=== PATIENT | male | born 1980 | race Asian ===

== ENCOUNTER 2019-10-29 08:13 | Emergency (ER) | payer OTHER ==
--- OUTSIDE RECORDS SUMMARY | 2019-10-29 08:28 | XMS REPORT | Summary of Care ---
:1980 Author Organization [facility] Address [address] [address] Care Team Providers Name Role Phone None, Nettie Primary Care Provider Unavailable Reason for Referral Refer to Department Only (Routine) Status Reason Specialty Diagnoses / Referred By Referred To Procedures Contact Contact Pending Review PODIATRY Diagnoses Diabetes mellitus without complication (HCC) Juliette Bermudez FNP [address] [place] [address] Reason for Visit Reason Comments Cough x2 weeks Nail Problem toe nail problem Encounter Details Date Type Department Care Team Description 10/21/2019 Office Visit [place] Juliette Stephen, Diabetes mellitus without complication (HCC) (Primary Dx); Practice ROBINA rosales; [facility] [address] Acute sinusitis, recurrence not specified, unspecified location; [place] [address] [place] [address] Acute bronchitis, unspecified organism [phone] Allergies Active Allergy Reactions Severity Noted Date Comments Bee Sting Swelling 10/21/2019 documented as of this encounter (statuses as of 10/21/2019) Medications Medication Sig Dispensed Refills Start Date End Date Status amoxicillin-clavulanic Take 1 Tab by 20 Tab 0 10/21/2019 10/31/2019 Active acid (AUGMENTIN) mouth TWICE 875-125 MG Oral DAILY for 10 TabIndications: Acute days. sinusitis, recurrence not specified, unspecified location, Acute bronchitis, unspecified organism documented as of this encounter (statuses as of 10/21/2019) Active Problems No known active problemsdocumented as of this encounter (statuses as of 2018) Social History Tobacco Use Types Packs/Day Years Used Date Never Smoker Smokeless Tobacco: Never Used Alcohol Use Drinks/Week oz/Week Comments Yes Alcohol Habits Answer Date Recorded How often do you have a drink containing alcohol? Monthly or less 10/21/2019 How many drinks containing alcohol do you have on a 1 or 2 10/21/2019 typical day when you are drinking? How often do you have six or more drinks on one Not asked occasion? Sex Assigned at Date Recorded Not on file Job Start Date Occupation Industry Not on file Not on file Not on file Travel History Travel Start Travel End No recent travel history available. documented as of this encounter Last Filed Vital Signs Vital Sign Reading Time Taken Comments Blood Pressure 130/62 10/21/2019 2:00 PM EST Pulse 73 10/21/2019 2:00 PM EST Temperature 37.3 10/21/2019 2:00 PM EST C (99.2 F) Respiratory Rate - - Oxygen Saturation 95% 10/21/2019 2:00 PM EST Inhaled Oxygen Concentration - - Weight 84.4 kg (186 lb) 10/21/2019 2:00 PM EST Height 175.3 cm (5' 9") 10/21/2019 2:00 PM EST Body Mass Index 27.47 10/21/2019 2:00 PM EST documented in this encounter Patient Instructions Patient InstructionsJuliette Lovett FNP - 10/21/2019 2:00 PM ESTCan try soaking feet in warm water and distilled vinegar daily Rest Fluids Steam may help loosen congestion Mucinex thins mucus salt water gargle as needed for sore/scratchy throat Antibiotic as directed Podiatry referral done Call if symptoms fail to resolve or worsen Schedule labs Follow up with PCP documented in this encounter Progress Notes Juliette Lovett FNP - 10/21/2019 2:00 PM EST PATIENT: Lokesh Grimes : 1980 DATE OF SERVICE: 10/21/2019 CHIEF COMPLAINT: Chief Complaint Patient presents with Cough x2 weeks Nail Problem toe nail problem Subjective HISTORY OF PRESENT ILLNESS: Lokesh Grimes is a 39-y.o. male. HPI Cough x 2 weeks - using cough drops - no change. Some sick contacts Hx diabetes - was on Lantus - no meds for several years - was also on cholesterol meds. Has not had health insurance. Hx ingrown toenails - was treated in past - part removed but has grown back - painful at times. 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 No pertinent family history. Current Outpatient Medications Medication Sig amoxicillin-clavulanic acid (AUGMENTIN) 875-125 MG Oral Tab Take 1 Tab by mouth TWICE DAILY for 10 days. No current facility-administered medications for this visit. Allergies Allergen Reactions Bee Sting Swelling Social History Socioeconomic History Marital status: Spouse name: Not on file Number of children: Not on file Years of education: Not on file Highest education level: Not on file Occupational History Not on file Social Needs Financial resource strain: Not on file Food insecurity Worry: Not on file Inability: Not on file Transportation needs Medical: Not on file Non-medical: Not on file Tobacco Use Smoking status: Never Smoker Smokeless tobacco: Never Used Substance and Sexual Activity Alcohol use: Yes Frequency: Monthly or less Drinks per session: 1 or 2 Drug use: Yes Types: Marijuana Sexual activity: Yes Partners: Female control/protection: Other Comment: no protection Lifestyle Physical activity Days per week: Not on file Minutes per session: Not on file Stress: Not on file Relationships Social connections Talks on phone: Not on file Gets together: Not on file Attends protestant service: Not on file Active member of club or organization: Not on file Attends meetings of clubs or organizations: Not on file Relationship status: Not on file Intimate partner violence Fear of current or ex partner: Not on file Emotionally abused: Not on file Physically abused: Not on file Forced sexual activity: Not on file Other Topics Concern Not on file Social History Narrative Not on file Over the last 2 weeks, have you been feeling down, depressed, anxious, or hopeless?: 0 Over the past 2 weeks, have you felt little interest or pleasure in doing things ?: 0 REVIEW OF SYSTEMS: Review of Systems Constitutional: Negative for chills, fever and malaise/fatigue. HENT: Positive for congestion and ear pain. Negative for sore throat. Respiratory: Positive for cough, sputum production, shortness of breath and wheezing. Cardiovascular: Negative for chest pain and palpitations. Musculoskeletal: Positive for myalgias. Skin: Negative for rash. Neurological: Negative for dizziness, weakness and headaches. Occasional tingling in toes Objective PHYSICAL EXAM: VITALS: BP 130/62 | Pulse 73 | Temp 99.2 F (37.3 C) (Tympanic) | Ht 5' 9" (1.753 m) | Wt 186 lb (84.4 kg) | SpO2 95% | BMI 27.47 kg/m Body mass index is 27.47 kg/m. Physical Exam Vitals signs reviewed. Constitutional: General: He is not in acute distress. Appearance: Normal appearance. HENT: Head: Normocephalic and atraumatic. Right Ear: Tympanic membrane normal. Left Ear: Tympanic membrane normal. Ears: Comments: Canals red, no swelling Nose: Congestion and rhinorrhea present. Mouth/Throat: Lips: [place]. Mouth: Mucous membranes are moist. Pharynx: Uvula midline. Oropharyngeal exudate and posterior oropharyngeal erythema present. Tonsils: Tonsillar exudate present. No tonsillar abscesses. Swellin+ on the right. 2+ on the left. Comments: Tonsils 2+ Eyes: Extraocular Movements: Extraocular movements intact. Conjunctiva/sclera: Conjunctivae normal. Pupils: Pupils are equal, round, and reactive to light. Neck: Musculoskeletal: Normal range of motion. No neck rigidity. Cardiovascular: Rate and Rhythm: Normal rate and regular rhythm. Pulmonary: Effort: Pulmonary effort is normal. Breath sounds: Normal breath sounds. Musculoskeletal: Normal range of motion. Feet: Lymphadenopathy: Cervical: No cervical adenopathy. Skin: General: Skin is warm and dry. Capillary Refill: Capillary refill takes less than 2 seconds. Neurological: Mental Status: He is alert and oriented to person, place, and time. Cranial Nerves: Cranial nerves are intact. Sensory: Sensation is intact. No sensory deficit. Motor: No weakness. Gait: Gait is intact. Psychiatric: Mood and Affect: Mood normal. Behavior: Behavior normal. ASSESSMENT / IMPRESSION: ICD-9-CM ICD-10-CM 1. Diabetes mellitus without complication (HCC) 250.00 E11.9 GLYCOHEMOGLOBIN A1C COMPREHENSIVE METABOLIC PANEL LIPID PROFILE REFER TO PODIATRY 2. Ingrown toenail 703.0 L60.0 REFER TO PODIATRY 3. Acute sinusitis, recurrence not specified, unspecified location 461.9 J01.90 amoxicillin-clavulanic acid (AUGMENTIN) 875-125 MG Oral Tab 4. Acute bronchitis, unspecified organism 466.0 J20.9 amoxicillin-clavulanic acid (AUGMENTIN) 875-125 MG Oral Tab Plan Can try soaking feet in warm water and distilled vinegar daily Rest Fluids Steam may help loosen congestion Mucinex thins mucus salt water gargle as needed for sore/scratchy throat Antibiotic as directed Podiatry referral done Call if symptoms fail to resolve or worsen Schedule labs Follow up with PCP Author: ROBINA Messer 10/21/2019 14:32 documented in this encounter Plan of Treatment Date Type Specialty Care Team Description 10/27/2019 Lab Internal Medicine 11/08/2019 Office Visit [facility] Bryce Bang MD [address] [place] [address] [phone] Name Type Priority Associated Diagnoses Order Schedule GLYCOHEMOGLOBIN A1C Lab Routine Diabetes mellitus Expected: 10/21/2019 without complication (Approximate), (HCC) Expires: 10/21/2020 COMPREHENSIVE METABOLIC Lab Routine Diabetes mellitus Expected: 10/21/2019 PANEL without complication (Approximate), (HCC) Expires: 04/18/2020 LIPID PROFILE Lab Routine Diabetes mellitus Expected: 10/21/2019 without complication (Approximate), (HCC) Expires: 04/18/2020 Name Type Priority Associated Diagnoses Order Schedule REFER TO PODIATRY Referral Routine Diabetes mellitus without Expected: 10/2019, complication (HCC) Expires: 10/21/2020 [facility] Maintenance Due Date Last Done Comments DTaP/Tdap/Td Vaccines (1 - Tdap) 1993 DEPRESSION SCREENING 1994 INFLUENZA VACCINE (#1) 2019 HEPATITIS A IMMUNIZATION SERIES Aged Out No longer eligible based on patient's age to complete this topic HPV IMMUNIZATION SERIES Aged Out No longer eligible based on patient's age to complete this topic MENINGOCOCCAL VACCINE IMM Aged Out No longer eligible based on patient's age to complete this topic PNEUMOCOCCAL 0-64 YRS Aged Out No longer eligible based on patient's age to complete this topic documented as of this encounter Results Not on filedocumented in this encounter Visit Diagnoses Diagnosis Diabetes mellitus without complication (HCC) Type II or unspecified type diabetes mellitus without mention of complication, not stated as uncontrolled Ingrown toenail Ingrowing nail Acute sinusitis, recurrence not specified, unspecified location Acute bronchitis, unspecified organism documented in this encounter Insurance Payer Benefit Plan / Subscriber ID Effective Dates Phone Address Type Group [employer]CIAL AETNA xxxxxxxxxx 2019-Present [employer] documented as of this encounter
--- NOTE | 2019-10-29 08:31 | ED ---
GI/ HPI - HPI Summary HPI Summary: 39-year-old male presents with vomiting today. He states this has happened a couple times in the past couple months. He states that he has been having chills and hot flashes. He states that he has not eaten anything this morning and did not eat anything different last night. He admits to generalized abd pain. No diarrhea. with past episodes had diarrhea. States has had a cold for the past week and is currently on amoxicillin for past week. He states that his sinus congestion, sore throat, and cough having been improving. Denies any chest pressure or shortness of breath. He is diabetic but does not check his sugars. - History of Current Complaint Chief Complaint: EDFluSymptoms Time Seen by Provider: 10/29/19 08:20 Stated Complaint: VOMITING/CHILLS/ABD PAIN PER PT Pain Intensity: 7 - Allergy/Home Medications Allergies/Adverse Reactions: Allergies Allergy/AdvReac Type Severity Reaction Status Date / Time No Known Allergies Allergy Verified 10/29/19 08:16 Home Medications: Home Medications Amoxicillin PO (*) [Amoxicillin 875 MG (*)] 1 tab PO BID 10/29/19 [History Confirmed 10/29/19] Silver Sulfadiazine 1%* [SILVadine 1%*] 1 applic TOPICAL DAILY 10/29/19 [ History Confirmed 10/29/19] PMH/Surg Hx/FS Hx/Imm Hx Endocrine/Hematology History: Reports: Hx Diabetes Denies: Hx Anticoagulant Therapy Cardiovascular History: Denies: Hx Myocardial Infarction Infectious Disease History: No Infectious Disease History: Denies: Traveled Outside the [place] in Last 30 Days - Family History Known Family History: Positive: Non-Contributory - Social History Alcohol Use: Rare Substance Use Type: Reports: Marijuana Smoking Status (MU): Never Smoked Tobacco Review of Systems Positive: Chills. Negative: Fever Negative: Chest Pain Negative: Shortness Of Breath Positive: Abdominal Pain, Vomiting, Nausea. Negative: Diarrhea All Other Systems Reviewed And Are Negative: Yes Physical Exam Triage Information Reviewed: Yes Vital Signs On Initial Exam: Initial Vitals Temp Pulse Resp BP Pulse Ox 98.8 F 82 16 126/78 97 10/29/19 08:16 10/29/19 08:16 10/29/19 08:16 10/29/19 08:16 10/29/19 08:16 Vital Signs Reviewed: Yes Appearance: Positive: Well-Appearing Skin: Positive: Warm, Dry Head/Face: Positive: Normal Head/Face Inspection Eyes: Positive: Normal, EOMI, KATHIE, Conjunctiva Clear ENT: Positive: Pharynx normal, TMs normal Respiratory/Lung Sounds: Positive: Clear to Auscultation, Breath Sounds Present Cardiovascular: Positive: Normal, RRR Abdomen Description: Positive: Soft, Other: - diffuse abd tenderness Bowel Sounds: Positive: Present Musculoskeletal: Positive: Normal Neurological: Positive: Normal Psychiatric: Positive: Normal Procedures - Sedation Patient Received Moderate/Deep Sedation with Procedure: No Diagnostics - Vital Signs Vital Signs Temp Pulse Resp BP Pulse Ox 10/29/19 08:16 98.8 F 82 16 126/78 97 - Laboratory Result Diagrams: 10/29/19 08:49 10/29/19 08:49 Lab Statement: Any lab studies that have been ordered have been reviewed, and results considered in the medical decision making process. Re-Evaluation - Re-Evaluation First Eval Re-Evaluation Time: 09:50 Change: Improved Comment: feeling better, abd pain improved, mild diffuse GIGU Course/Dx - Course Course Of Treatment: 39-year-old male presents with vomiting today. He states this has happened a couple times in the past couple months. He states that he has been having chills and hot flashes. He states that he has not eaten anything this morning and did not eat anything different last night. He admits to generalized abd pain. No diarrhea. with past episodes had diarrhea. States has had a cold for the past week and is currently on amoxicillin for past week. He states that his sinus congestion, sore throat, and cough having been improving. Denies any chest pressure or shortness of breath. He is diabetic but does not check his sugars. on exam lungs CTA. abd diffuse abd tenderness. wbc 12.4. glucose is 281. crp normal. flu neg. will give nausea meds. feeling better after nausea meds. will discharge with such. discussed likely viral syndrome. pateint is going to be following up with primary to restart insulin. patient understand and agrees with plan. - Diagnoses Differential Diagnoses - Male: Gastroenteritis (Bacterial), Gastroenteritis ( Viral), Other - influenza Provider Diagnoses: Vomiting Discharge ED - Sign-Out/Discharge Documenting (check all that apply): Patient Departure - Discharge Plan Condition: Good Disposition: HOME Prescriptions: Ondansetron ODT TAB* [Zofran 4 MG Odt TAB*] 4 mg PO Q6H PRN #20 tab.odt PRN Reason: Nausea Patient Education Materials: Acute Nausea and Vomiting (ED) Referrals: Bryce Bang MD [Primary Care Provider] - Additional Instructions: Can take Zofran every 6 hours as needed for nausea Drink small amounts of fluid as tolerated When able to eat follow BRAT diet: Bananas, rice, applesauce, toast Take ibuprofen or Tylenol for pain as needed every 6 hours Follow up with primary within 5 days Return to ED if develop any new or worsening symptoms - Billing Disposition and Condition Condition: GOOD Disposition: Home - Attestation Statements Provider Attestation: I was available for consult. This patient was seen by the BRITTNEY. The patient was not presented to, seen by, or examined by me. Mohan Hughes MD
[2019-10-29] MEDS: Ketorolac INJ* 30 MG/ML 1 ML VIAL IV PUSH ONE (08:38)
[2019-10-29] MEDS: NS 0.9% 1000 ML** 1,000 ML IV ONE ×2 (08:38→09:39)
[2019-10-29] MEDS: Ondansetron INJ* 2 MG/ML VIAL IV ONE (08:38)
[2019-10-29 08:58] LABS: ABS Basophils 0.1 10^3/ul (0-0.2); ABS Monocytes 0.8 10^3/ul (0-0.8); ABS Neutrophils 10.5 10^3/ul (1.5-7.7); Eosinophil % 0.2 %; Hematocrit 46 % (42-52); Hemoglobin 15.3 g/dL (14.0-18.0); Lymphocyte % 7.9 %; Mean Corpuscular HGB Conc 34 g/dL (31-36); Mean Corpuscular Hemoglobin 30 pg (27-31); Mean Corpuscular Volume 89 fL (80-94); Mean Platelet Volume 9.1 fL (7.4-10.4); Platelet Count 194 10^3/uL (150-450); Red Blood Count 5.14 10^6 /uL (4.18-5.48); Red Cell Distribution Width 13 % (10-15); White Blood Count 12.4 10^3/uL (3.5-10.8)
[2019-10-29 09:14] LABS: ALT 22 U/L (7-52); AST 13 U/L (13-39); Albumin 4.3 g/dL (3.2-5.2); Albumin/Globulin Ratio 1.9 (1-3); Alkaline Phosphatase 67 U/L (34-104); Anion Gap 7 mmol/L (2-11); BUN/Creatinine Ratio 23.9 (8-20); Blood Urea Nitrogen 17 mg/dL (6-24); C Reactive Protein < 1.00 mg/L (<8.01); CO2 Carbon Dioxide 24 mmol/L (22-32); Calcium 9.3 mg/dL (8.6-10.3); Chloride 103 mmol/L (101-111); EGFR African American 151.1 (>60); EGFR Non-African American 124.8 (>60); Globulin 2.3 g/dL (2-4); Glucose 295 mg/dL (70-100); Magnesium 1.9 mg/dL (1.9-2.7); Potassium 4.3 mmol/L (3.5-5.0); Sodium 134 mmol/L (135-145); Total Protein 6.6 g/dL (6.4-8.9)
[2019-10-29 09:37] LABS: Influenza A Molecular NEGATIVE (Negative); Influenza B Molecular NEGATIVE (Negative)
[2019-10-29 12:09] VITALS: BP 113/75
== END 2019-10-29 10:27 | disposition home or self-care (01) ==
LOC: ED 08:13
DX: R11.10 Vomiting, unspecified (principal); E11.9 Type 2 diabetes mellitus without complications
CPT/HCPCS: 36415; 80053; 82803; 83605; 83690; 83735; 85025; 86140; 86308; 96361; 96374; 96375; 99283; J1885; J2405

== ENCOUNTER 2019-10-29 18:38 | Inpatient (IN) | payer OTHER ==
[2019-10-29] MEDS ORDERED: Ondansetron INJ* 2 MG/ML VIAL IV ONE ×2 (19:09→22:11)
[2019-10-29] MEDS ORDERED: NS 0.9% 1000 ML** 1,000 ML IV ONE ×2 (19:09→20:50)
[2019-10-29] MEDS ORDERED: Morphine 4 MG/ML VIAL (1 ml) 4 MG/ML VIAL IV ONE ×2 (19:19→22:01)
--- NOTE | 2019-10-29 19:22 | ED ---
Abdominal Pain/Male - HPI Summary HPI Summary: This patient is a 39 year old male presenting to [facility] with a chief complaint of abdominal pain, nausea, and vomiting. He states it started this morning. He denies hematuria. He states the pain is diffuse. He states he last tried to eat 3 hours ago but could not keep it down, last food kept down was 6 hours ago. The patient has a Hx of of diabetes. He rates his pain 9/10 in severity. - History of Current Complaint Chief Complaint: EDNauseaVomitDiarrh Stated Complaint: VOMITING AND ABD PAIN Time Seen by Provider: 10/29/19 19:01 Hx Obtained From: Patient Onset/Duration: Lasting Hours Pain Intensity: 9 Pain Scale Used: 0-10 Numeric Location: Diffuse - Allergies/Home Medications Allergies/Adverse Reactions: Allergies Allergy/AdvReac Type Severity Reaction Status Date / Time No Known Allergies Allergy Verified 10/29/19 18:42 PMH/Surg Hx/FS Hx/Imm Hx Endocrine/Hematology History: Reports: Hx Diabetes Denies: Hx Anticoagulant Therapy Cardiovascular History: Denies: Hx Myocardial Infarction Infectious Disease History: No Infectious Disease History: Denies: Traveled Outside the [place] in Last 30 Days - Family History Known Family History: Negative: Hypertension - Social History Alcohol Use: Rare Substance Use Type: Reports: Marijuana Smoking Status (MU): Never Smoked Tobacco Review of Systems Positive: Abdominal Pain, Vomiting, Nausea Negative: hematuria All Other Systems Reviewed And Are Negative: Yes Physical Exam - Summary Physical Exam Summary: Constitutional: Well-developed, Well-nourished, Alert. (+) Distressed Skin: Warm, Dry HENT: Normocephalic; Atraumatic Eyes: Conjunctiva normal Neck: Musculoskeletal ROM normal neck. (-) JVD, (-) Stridor, (-) Tracheal deviation Cardio: Rhythm regular, rate normal, Heart sounds normal; Intact distal pulses; The pedal pulses are 2+ and symmetric. Radial pulses are 2+ and symmetric. (-) Murmur Pulmonary/Chest wall: Effort normal. (-) Respiratory distress, (-) Wheezes, (-) Rales Abd: Soft, Generalized tenderness, (-) Distension, (-) Guarding, (-) Rebound, normal bowel sounds. Musculoskeletal: (-) Edema Lymph: (-) Cervical adenopathy Neuro: Alert, Oriented x3 Psych: Mood and affect Normal Triage Information Reviewed: Yes Vital Signs On Initial Exam: Initial Vitals Temp Pulse Resp BP Pulse Ox 96.7 F 82 22 171/117 100 10/29/19 18:38 10/29/19 18:38 10/29/19 18:38 10/29/19 18:38 10/29/19 18:38 Vital Signs Reviewed: Yes Procedures - Sedation Patient Received Moderate/Deep Sedation with Procedure: No Diagnostics - Vital Signs Vital Signs Temp Pulse Resp BP Pulse Ox 10/29/19 18:38 96.7 F 82 22 171/117 100 - Laboratory Result Diagrams: 10/30/19 07:38 10/30/19 07:38 Lab Statement: Any lab studies that have been ordered have been reviewed, and results considered in the medical decision making process. Re-Evaluation - Re-Evaluation First Eval Re-Evaluation Time: 22:50 Change: Worse Comment: Patient vomited again, received Zofran. His pain increased, was given morphine. CT shows colitis. Will discuss with hospitalist about admission. Abdominal Pain Male Course/Dx - Course Course Of Treatment: This patient is a 39 year old male presenting to [facility] with a chief complaint of abdominal pain, nausea, and vomiting. Labs reveal WBC 13.6 H, Absolute Neuts 10.9 H, Absolute Monos 0.9 H, CO2 17 L, Anion Gap 15 H, Glucose 273 H, Lactic Acid 3.9 H, CRP 2.03 H. Patient will be signed out to Dr. Graham pending CT abd/pel impression. - Diagnoses Provider Diagnoses: Colitis, Vomiting Discharge ED - Sign-Out/Discharge Documenting (check all that apply): Sign-Out Patient Signing out patient TO: Teena Graham - At shift change [address] Abd/Pel - Discharge Plan Condition: Stable Disposition: ADMITTED TO [facility] - Billing Disposition and Condition Condition: STABLE Disposition: Admitted to [facility] - Attestation Statements Document Initiated by Scribe: Yes Documenting Scribe: Luis F Martins Provider For Whom Prashanthe is Documenting (Include Credential): Refugio Hutton DO Scribe Attestation: Luis F Valderrama scribed for Refugio Hutton DO on 10/30/19 at 1026. Scribe Documentation Reviewed: Yes Provider Attestation: The documentation as recorded by the scribe, Luis F Martins accurately reflects the service I personally performed and the decisions made by me, Refugio Hutton, DO Status of Scribe Document: Viewed
[2019-10-29 19:52] LABS: ABS Basophils 0.1 10^3/ul (0-0.2); ABS Lymphocytes 1.8 10^3/ul (1.0-4.8); ABS Monocytes 0.9 10^3/ul (0-0.8); ABS Neutrophils 10.9 10^3/ul (1.5-7.7); Eosinophil % 0.2 %; Hematocrit 45 % (42-52); Hemoglobin 15.5 g/dL (14.0-18.0); Lymphocyte % 12.9 %; Mean Corpuscular HGB Conc 35 g/dL (31-36); Mean Corpuscular Hemoglobin 30 pg (27-31); Mean Corpuscular Volume 87 fL (80-94); Mean Platelet Volume 9.2 fL (7.4-10.4); Platelet Count 218 10^3/uL (150-450); Red Blood Count 5.15 10^6 /uL (4.18-5.48); Red Cell Distribution Width 13 % (10-15); White Blood Count 13.6 10^3/uL (3.5-10.8)
[2019-10-29] MEDS ORDERED: Ketorolac INJ* 30 MG/ML 1 ML VIAL IV PUSH ONE (19:52)
[2019-10-29 20:26] LABS: Albumin 4.6 g/dL (3.2-5.2); Albumin/Globulin Ratio 1.9 (1-3); BUN/Creatinine Ratio 19.2 (8-20); Calcium 9.3 mg/dL (8.6-10.3); EGFR African American 135.5 (>60); Globulin 2.4 g/dL (2-4); Potassium 3.8 mmol/L (3.5-5.0); Total Bilirubin 0.7 mg/dL (0.2-1.0)
[2019-10-29] MEDS ORDERED: Iodixanol* (CONTRAST) 320 MG/ML 100 ML SDV IV ONE (20:32)
[2019-10-29] MEDS ORDERED: Piperacillin/Tazobac ADVAN(*) 3.375 GM in NS 0.9% 100 ML* 100 ML IVPB ONE (20:51)
[2019-10-29 21:13] LABS: CRP High Sensitivity 2.03 mg/L (<2.00)
[2019-10-29 22:16] LABS: Urine Appearance Clear; Urine Bilirubin Negative (Negative); Urine Blood Negative (Negative); Urine Color Yellow; Urine Glucose 3+(>=500 mg/dL) (Negative); Urine Ketones 2+ (Negative); Urine Nitrite Negative (Negative); Urine Protein Negative (Negative); Urine Specific Gravity 1.022 (1.010-1.030); Urine Urobilinogen Negative (Negative)
[2019-10-29 22:17] LABS: Erythrocyte Sed Rate 5 mm/Hr (0-14)
--- NOTE | 2019-10-29 22:38 | ED ---
Progress - Progress Note Progress Note: Patient is a sign out from Dr. Hutton to Dr. Graham at change of shifts at 2200 on 10/29/19, pending CT ABD/PEL and disposition. - Results/Orders Results/Orders: IMPRESSION: Transverse colon wall thickening consistent with colitis, likely infectious or inflammatory. No bowel obstruction. Re-Evaluation - Re-Evaluation First Eval Re-Evaluation Time: 22:50 Change: Worse Comment: Patient vomited again, received Zofran. His pain increased, was given morphine. CT shows colitis. Will discuss with hospitalist about admission. Course/Dx - Course Course Of Treatment: This patient is a 39 year old male presenting to [facility] with a chief complaint of abdominal pain, nausea, and vomiting. Labs reveal WBC 13.6 H, Absolute Neuts 10.9 H, Absolute Monos 0.9 H, CO2 17 L, Anion Gap 15 H, Glucose 273 H, Lactic Acid 3.9 H, CRP 2.03 H. Patient will be signed out to Dr. Graham pending CT abd/pel impression. During ED course, patient was given Ciprofloxacin, iodixanol, ketorolac, metronidazole, morphine, fluids, ondansetron, and piperacillin. - Diagnoses Provider Diagnoses: Colitis, Vomiting - Provider Notifications Discussed Care Of Patient With: Precious King - Hospitalist Time Discussed With Above Provider: 00:46 Instructed by Provider To: Admit As Inpatient - Dr. King accepts patient for admission. Admit/Transition Orders Completed By ED Provider: Yes Discharge ED - Sign-Out/Discharge Documenting (check all that apply): Patient Departure - admit, Sign-Out Patient Signing out patient TO: Teena Graham Receiving patient FROM: Jad Hutton - Patient is a sign out from Dr. Hutton to Dr. Graham at change of shifts at 2200 on 10/29/19 - Discharge Plan Condition: Stable Disposition: ADMITTED TO [facility] - Billing Disposition and Condition Condition: STABLE Disposition: Admitted to [facility] - Attestation Statements Document Initiated by Scribe: Yes Documenting Scribe: Scott Harp Provider For Whom Scribe is Documenting (Include Credential): Teena Graham MD Scribe Attestation: Scott Valderrama, scribed for Teena Graham MD on 11/02/19 at 1959. Scribe Documentation Reviewed: Yes Provider Attestation: The documentation as recorded by the scribe, Scott Harp accurately reflects the service I personally performed and the decisions made by me, Teena Graham MD Status of Scribe Document: Viewed
[2019-10-29] MEDS ORDERED: Ciprofloxacin 400MG IVPREMIX(* 400 MG/200 ML BAG IVPB ONE (23:18)
[2019-10-29] MEDS ORDERED: metroNIDAZOLE IV 500 MG/100ML* 500 MG/100 ML BAG IVPB ONE (23:19)
[2019-10-30] MEDS ORDERED: NS 0.9% 1000 ML** 1,000 ML IV SCH (02:00)
[2019-10-30] MEDS: Heparin VIAL(*) 5000 UNITS/ML VIAL (FIVE THOUSAND) SUBCUT SCH ×3 (06:22→23:25)
--- NOTE | 2019-10-30 07:20 | ADMNOTE ---
Subjective Interval History: this is H/P 39 yo male with history of DM 1.5 presenting with severe abdominal pain with nausea/vomiting and diarrhea. He has been having these symptoms intermittently for the past 4 weeks. He said this is his 5th episode and he came to the ER because this time, pain is very severe, he has not been able to keep anything down and he has been having incessant diarrhea. 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 He lives with his family, no one else is sick. He has hx of DM1.5 which hasnt been getting treated because insurance problems. He went to the ED last week for URI and was prescribed antibiotics. In the ED, he got a CT abdomen which showed transverse colon wall thickening consistent with colitis. Vitals are stable, no fever. Though he has been having subjective fevers. Initial lab values showed an elevated white count. Family History: Unchanged from Admission Social History: Unchanged from Admission Past Medical History: Unchanged from Admission Review of Systems - Measurements Intake and Output: Intake and Output Last 24 Hours 10/28/19 10/29/19 10/30/19 10/31/19 06:59 06:59 06:59 06:59 Intake Total 1000 Balance 1000 Weight 186 lb 1.6 oz Intake: IV Fluids 1000 - Review of Systems Constitutional Symptoms: Positive: Fever Negative: Weight Gain, Weight Loss, Weakness, Fatigue, Night Sweats, Unexplained Falls, Other Dermatology: Negative: Normal, Rash, Skin Lesions, Cancer, Skin Lumps, Other HEENT: Negative: Normal, Change in Hearing, Vertigo, Dental Problems, Tinnitus, Sinus Problem, Other Eyes: Negative: Normal, Change in Vision, Double Vision, Eye Pain, Glaucoma, Cataract, Contacts or Glasses, Other Thyroid: Negative: Normal, Goiter, Thyroid Nodule, Cold Intolerance, Heat Intolerance , Sweatiness, Tremor, Frequent Defecation, Constipation, Palpitations, Primary Hypothyroidism, Primary Hyperthyroidism, Weight Loss, Weight Gain, Change in Skin/Hair, Change in Menstruation, Radiation Exposure, Other Pulmonary: Negative: Normal, Cough, Sputum, Hemoptysis, Wheezing, Respiratory Distress, Shortness of Breath, COPD, Asthma, Exercise Intolerance, Home Oxygen, Other Cardiology: Negative: Normal, Chest Pain, Shortness of Breath, Palpitations, Swelling of Ankles, Peripheral Vascular Dis, Edema, Faintness, Syncope, Claudication, Proximal NocturnalDyspnea, Orthopnoea, Other Gastroenterology: Positive: Abdominal Pain, Nausea, Vomiting Negative: Normal, Anorexia, Indigestion, Difficulty Swallowing, Heartburn, Constipation, Diarrhea, Blood in Stools, Change in Bowel Habits, Haematemesis, Melena, Other Genital - Urinary: Negative: Normal, Dysuria, Hematuria, Polyuria, Nocturia, Other Genitourinary - Male: Negative: Prostatism, Erectile Dysfunction, Family Hx of Prostate Cancer, Other Musculoskeletal: Negative: Joint Pain, Joint Stiffness, Arthritis, Osteoporosis, Low Back Pain , Sciatica, Joint Deformities, Kyphoscoliosis, Other Endocrinology: Negative: Normal, Thyroid Problems, Adrenal Problems, Gonadal Problems, Family Hx Endocrine Disorders, Obesity, Diabetes Mellitus, Hyperglycemia, Hx Hypoglycemia, Diabetic Foot Ulcers, Calluses, Hirsutism, Menstrual Abnormalities , Polydipsia, Polyuria, Gonadal Problems, Gynecomastia, Pituitary disease, Other Hematologic/Lymphatic: Negative: Anemia, Easy Bruising, Hx Leukemia, Hx Lymphoma, Use of Anticoagulant, Use of Antiplatelet Drugs, Other Neurology: Negative: Normal, Headache, Migraines, Change in Vision, Diplopia, Dizziness , Change in Balancing, Change in Coordination, Change in Memory, Change in Speech, Change in Sphincter Function, Change in Walking, Numbness\Paresthesiae, Unexplained Weakness, Hx of Stroke\TIA, Hx of Seizures, Other Psychiatry: Negative: Normal, Depression, Anxiety, Depressed Mood, Anhedonia, Sexual Dysfunction, Weight Change, Guilt Feelings, Tearfulness, Unusual Fatigue, Unusual Anxiety, Suicidal Ideation, Hypomania, Eating Disorders, Other Allergic/Immunologic: Negative: Hx Anaphylaxis, Hx Angioedema, Hx Environmental, Hx Seasonal, Asthma, Hx HIV, Immunocompromise, Swollen Glands LymphNodes, Other Objective Active Medications: Heparin Sodium (Porcine) (Heparin Vial(*)) 5,000 units SUBCUT Q8HR [facility] Last Admin: 10/30/19 06:22 Dose: 5,000 units Sodium Chloride (Ns 0.9% 1000 Ml) 1,000 mls @ 100 mls/hr IV PER RATE [facility] Last Admin: 10/30/19 04:28 Dose: 100 mls/hr Influenza Virus Vaccine (Fluarix Quad 3561-8354 Syr) 0.5 ml IM .ONCE ONE Stop: 10/30/19 09:01 Morphine Sulfate (Morphine Inj (Syringe))*) 2 mg IV Q4H PRN PRN Reason: PAIN - MILD Vital Signs - 8 hr 10/29/19 10/29/19 10/30/19 23:28 23:58 00:00 Temperature Pulse Rate 83 81 79 Respiratory Rate Blood Pressure 118/73 115/74 (mmHg) O2 Sat by Pulse 98 98 98 Oximetry 10/30/19 10/30/19 10/30/19 00:02 00:28 00:58 Temperature Pulse Rate 80 71 73 Respiratory Rate Blood Pressure 117/73 124/75 (mmHg) O2 Sat by Pulse 98 97 97 Oximetry 10/30/19 10/30/19 10/30/19 01:00 02:00 03:00 Temperature 99.5 F Pulse Rate 77 83 78 Respiratory 16 Rate Blood Pressure 117/80 (mmHg) O2 Sat by Pulse 98 96 97 Oximetry 10/30/19 10/30/19 10/30/19 03:28 03:44 05:11 Temperature 99.5 F 98.6 F Pulse Rate 82 92 77 Respiratory 16 16 Rate Blood Pressure 123/78 117/80 115/68 (mmHg) O2 Sat by Pulse 96 99 98 Oximetry Oxygen Devices in Use Now: None Eyes: No Scleral Icterus, PERRLA Ears/Nose/Mouth/Throat: Clear Oropharnyx, Mucous Membranes Moist Neck: NL Appearance and Movements; NL JVP, Trachea Midline Respiratory: Symmetrical Chest Expansion and Respiratory Effort, Clear to Auscultation, Clear to Percussion Cardiovascular: NL Sounds; No Murmurs; No JVD, No Edema Abdominal: No Hepatosplenomegaly, - - epigastric tenderness Lymphatic: No Cervical Adenopathy Skin: No Rash or Ulcers, No Nodules or Sclerosis Neurological: Alert and Oriented x 3, - Result Diagrams: 10/29/19 19:39 10/29/19 19:39 Assess/Plan/Problems-Billing Assessment: - Patient Problems (1) Colitis Current Visit: Yes Status: Acute Code(s): K52.9 - NONINFECTIVE GASTROENTERITIS AND COLITIS, UNSPECIFIED SNOMED Code(s): 62356678 Comment: Most likely infectious, stool studies pending, CDiff pending flagyl and cipro never had anything like it before prior to 4 months ago. (2) Diabetes mellitus type 1.5 Current Visit: Yes Status: Acute Code(s): E13.9 - OTHER SPECIFIED DIABETES MELLITUS WITHOUT COMPLICATIONS SNOMED Code(s): 003522840 Comment: A1C pending diabetic diet POC Q6H (3) Full code status Current Visit: Yes Status: Acute Code(s): Z78.9 - OTHER SPECIFIED HEALTH STATUS SNOMED Code(s): 926862511 (4) DVT prophylaxis Current Visit: Yes Status: Acute Code(s): Z29.9 - ENCOUNTER FOR PROPHYLACTIC MEASURES, UNSPECIFIED SNOMED Code(s): 808558400 Comment: heparin sc
[2019-10-30 07:53] LABS: ABS Basophils 0.1 10^3/ul (0-0.2); ABS Lymphocytes 1.7 10^3/ul (1.0-4.8); ABS Neutrophils 9.6 10^3/ul (1.5-7.7); Eosinophil % 0.2 %; Hematocrit 43 % (42-52); Hemoglobin 14.9 g/dL (14.0-18.0); Lymphocyte % 13.9 %; Mean Corpuscular HGB Conc 34 g/dL (31-36); Mean Corpuscular Hemoglobin 30 pg (27-31); Mean Corpuscular Volume 88 fL (80-94); Mean Platelet Volume 9.2 fL (7.4-10.4); Platelet Count 197 10^3/uL (150-450); Red Blood Count 4.96 10^6 /uL (4.18-5.48); Red Cell Distribution Width 13 % (10-15); White Blood Count 12.4 10^3/uL (3.5-10.8)
[2019-10-30 08:08] LABS: BUN/Creatinine Ratio 17.8 (8-20); Calcium 8.7 mg/dL (8.6-10.3); EGFR African American 146.3 (>60); EGFR Non-African American 120.9 (>60); Potassium 3.6 mmol/L (3.5-5.0)
[2019-10-30] MEDS: metroNIDAZOLE IV 500 MG/100ML* 500 MG/100 ML BAG IVPB SCH ×3 (08:16→23:25)
[2019-10-30] MEDS: Morphine INJ* 2 MG/ML 1 ML SYRINGE (TWO MG - NEW SYRINGE VERSION) IV PRN ×4 (08:27→23:34)
--- NOTE | 2019-10-30 08:42 | PN ---
Subjective Date of Service: 10/30/19 Interval History: Mr. Grimes reports that he is feeling better today overall. He is tolerating a clear liquid diet with only mild abdominal discomfort, no nausea or vomiting. He has had one liquid bowel movement today, blood noted in stool. Family History: Unchanged from Admission Social History: Unchanged from Admission Past Medical History: Unchanged from Admission Objective Active Medications: Heparin Sodium (Porcine) (Heparin Vial(*)) 5,000 units SUBCUT Q8HR [facility] Sodium Chloride (Ns 0.9% 1000 Ml) 1,000 mls @ 100 mls/hr IV PER RATE [facility] Ciprofloxacin/Dextrose (Cipro 400 Mg Ivpremix(*)) 400 mg in 200 mls @ 200 mls/ hr IVPB Q24H [facility]; Protocol Metronidazole/Sodium Chloride (Flagyl 500 Mg Ivpb*) 500 mg in 100 mls @ 100 mls /hr IVPB Q8H [facility] Influenza Virus Vaccine (Fluarix Quad 8538-9030 Syr) 0.5 ml IM .ONCE ONE Morphine Sulfate (Morphine Inj (Syringe))*) 2 mg IV Q4H PRN Vital Signs: Temp Pulse Resp BP Pulse Ox 97.9 F 70 18 117/69 100 10/30/19 07:23 10/30/19 07:23 10/30/19 08:27 10/30/19 07:23 10/30/19 07:23 Oxygen Devices in Use Now: None Appearance: Male lying in bed in NAD Eyes: No Scleral Icterus Ears/Nose/Mouth/Throat: Mucous Membranes Moist Neck: Trachea Midline Respiratory: Symmetrical Chest Expansion and Respiratory Effort, Clear to Auscultation Cardiovascular: NL Sounds; No Murmurs; No JVD, No Edema Abdominal: - - Soft, mild tenderness midline, no rebound, no guarding, BS + Extremities: No Edema Skin: No Rash or Ulcers Neurological: Alert and Oriented x 3, NL Muscle Strength and Tone Nutrition: Taking PO's Result Diagrams: 10/30/19 07:38 10/30/19 07:38 Assess/Plan/Problems-Billing Assessment: Mr. Grimes is a 39 yo M with DM who was admitted on 10/30/19 with n/v/d and suspected infectious colitis. - Patient Problems (1) Colitis Comment: - Tolerating clear liquids today - Most likely infectious, stool studies pending, CDiff negative - Continue flagyl and cipro (2) Nausea and vomiting Comment: - Has had intermittent nausea and vomiting for at least one month, not entirely explained by current finding of colitis - Given DM, recommend outpatient gastric emptying study - Does use marijuana but reports that it helps nausea (3) Diabetes mellitus type 1.5 Comment: - HgbA1c 10.4 - Has had DM for ~ 7 years, not treated as he did not have insurance. Recently obtained insurance, started on lantus but co-pay is $200. Plan to start Novolin 70/30 BID at 5 units. Recommend follow up with Dr Peñaloza outpatient. - Blood glucose qAC with lispro SSI coverage (4) DVT prophylaxis Comment: - heparin sc (5) Full code status Comment: Status and Disposition: Inpatient. Anticipate discharge to home when medically stable.
[2019-10-30] MEDS ORDERED: Influenza VAC *QUAD* 2019-20* 0.5 ML SYRINGE IM ONE (09:00)
[2019-10-30] MEDS: Ciprofloxacin 400MG IVPREMIX(* 400 MG/200 ML BAG IVPB SCH (10:14)
[2019-10-30] MEDS ORDERED: Dextrose 50% VIAL 50 ml IV PUSH PRN (14:02)
[2019-10-30] MEDS: Silver Sulfadiazine 1%* 20 GM TOPICAL SCH (15:54)
[2019-10-30] MEDS: Insulin LISPRO* 1 UNITS UNIT SUBCUT SCH (17:01)
[2019-10-30] MEDS: Insulin ISOPH/REG 70/30 (*) 1 UNITS UNIT SUBCUT SCH (17:02)
[2019-10-31] MEDS: Heparin VIAL(*) 5000 UNITS/ML VIAL (FIVE THOUSAND) SUBCUT SCH ×2 (05:43→12:50)
--- NOTE | 2019-10-31 07:47 | PN ---
Subjective Date of Service: 10/31/19 Interval History: Mr. Grimes reports some lower quadrant abdominal pain this morning, pain less diffuse than yesterday. Tolerating soft diet well without nausea or vomiting. He has had liquid BMs with scant blood since yesterday. Family History: Unchanged from Admission Social History: Unchanged from Admission Past Medical History: Unchanged from Admission Objective Active Medications: Dextrose (Dextrose 50% Vial 50 Ml*) 25 ml IV PUSH .FOR FS < 60 - SS PRN Heparin Sodium (Porcine) (Heparin Vial(*)) 5,000 units SUBCUT Q8HR [facility] Sodium Chloride (Ns 0.9% 1000 Ml) 1,000 mls @ 100 mls/hr IV PER RATE [facility] Ciprofloxacin/Dextrose (Cipro 400 Mg Ivpremix(*)) 400 mg in 200 mls @ 200 mls/ hr IVPB Q24H [facility]; Protocol Metronidazole/Sodium Chloride (Flagyl 500 Mg Ivpb*) 500 mg in 100 mls @ 100 mls /hr IVPB Q8H [facility] Insulin Human Isoph/Insulin Regular (Humulin 70/30 (*)) 5 units SUBCUT 0800, 1700 [facility] Insulin Human Lispro (Humalog*) 0 units SUBCUT AC [facility]; Protocol Morphine Sulfate (Morphine Inj (Syringe))*) 2 mg IV Q4H PRN Silver Sulfadiazine (Silvadine 1%*) 1 applic TOPICAL DAILY [facility] Vital Signs: Temp Pulse Resp BP Pulse Ox 98.2 F 64 18 122/89 100 10/31/19 03:35 10/31/19 03:35 10/31/19 03:35 10/31/19 03:35 10/31/19 03:35 Oxygen Devices in Use Now: None Appearance: Male lying in bed in NAD Eyes: No Scleral Icterus Ears/Nose/Mouth/Throat: Mucous Membranes Moist Neck: Trachea Midline Respiratory: Symmetrical Chest Expansion and Respiratory Effort, Clear to Auscultation Cardiovascular: NL Sounds; No Murmurs; No JVD, No Edema Abdominal: - - Soft, mild tenderness across the lower abdomen, no rebound or guarding Extremities: No Edema Skin: No Rash or Ulcers Neurological: Alert and Oriented x 3, NL Muscle Strength and Tone Result Diagrams: 10/30/19 07:38 10/30/19 07:38 Microbiology and Other Data: . Assess/Plan/Problems-Billing Assessment: Mr. Grimes is a 39 yo M with DM who was admitted on 10/30/19 with n/v/d and suspected infectious colitis. - Patient Problems (1) Colitis Comment: - Tolerating soft diet - Most likely infectious, stool studies pending, CDiff negative - Continue flagyl and cipro for 5 day course (2) Nausea and vomiting Comment: - Has had intermittent nausea and vomiting for at least one month, not entirely explained by current finding of colitis - Given DM, recommend outpatient gastric emptying study - Does use marijuana but reports that it helps nausea (3) Diabetes mellitus type 1.5 Comment: - BG elevated, increase Novolin 70/30 to 8 units BID - HgbA1c 10.4 - Has had DM for ~ 7 years, not treated as he did not have insurance. Recently obtained insurance, started on lantus but co-pay is $200. Plan to start Novolin 70/30. Recommend follow up with Dr Peñaloza outpatient. - Blood glucose qAC with lispro SSI coverage (4) DVT prophylaxis Comment: - heparin sc (5) Full code status Comment: Status and Disposition: Inpatient. Anticipate discharge to home when medically stable.
[2019-10-31] MEDS: Insulin ISOPH/REG 70/30 (*) 1 UNITS UNIT SUBCUT SCH (07:50)
[2019-10-31] MEDS: Silver Sulfadiazine 1%* 20 GM TOPICAL SCH (07:51)
[2019-10-31] MEDS: Insulin LISPRO* 1 UNITS UNIT SUBCUT SCH ×2 (07:51→12:50)
[2019-10-31] MEDS: metroNIDAZOLE IV 500 MG/100ML* 500 MG/100 ML BAG IVPB SCH (07:51)
[2019-10-31] MEDS: Ciprofloxacin 400MG IVPREMIX(* 400 MG/200 ML BAG IVPB SCH (09:22)
[2019-10-31 11:19] VITALS: BP 143/84
--- NOTE | 2019-10-31 15:34 | DS ---
CC: Dr. Bryce Bang* [facility] MEDICINE DISCHARGE SUMMARY: DATE OF ADMISSION: 10/30/19 DATE OF DISCHARGE: 10/31/19 PRIMARY CARE PHYSICIAN: Dr. Bryce Bang. ATTENDING PHYSICIAN: Dr. Amy Prado* (dictation provided by Alis Serrano NP) . PRIMARY DIAGNOSIS: Infectious colitis. SECONDARY DIAGNOSIS: Insulin-dependent diabetes mellitus. MEDICATIONS: At the time of discharge are: 1. Cipro 500 mg p.o. b.i.d. 2. Flagyl 500 mg p.o. b.i.d. 3. Lantus insulin 15 units subcutaneously daily. 4. Zofran p.r.n. 5. Silvadene to bilateral great toes per recommendations of storekeeper steward. HOSPITAL COURSE: Mr. Grimes is a 39-year-old male who presented to the emergency room on 10/29/19 with concern for nausea, vomiting, and abdominal pain. Please see the dictated H and P from Dr. Precious King for complete details. In brief, the patient had had about 4 weeks of intermittent nausea and vomiting that were quite severe. He said he was having inability to tolerate any oral intake and frequent diarrhea. 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 No one else in his family was sick. He does have a history of type 1 diabetes, on insulin; however, he had not been receiving any medications for this as he had not had insurance coverage until immediately prior to his hospitalization. In the emergency room, Mr. Grimes had an abdomen and pelvis CT which showed "transverse colon wall thickening consistent with colitis, likely infectious or inflammatory, no bowel obstruction." He had labs, which showed a mild leukocytosis, white blood cell count 13.6, his ESR was only 5, his CRP was 2. His BUN and creatinine were normal. He had an elevated lactic acid of 3.9, but this resolved quickly with intravenous fluids and on repeat followup, it was 1.5. The patient's blood glucose was uncontrolled consistent with a history noted above and his BG was 273 on arrival. His vitals were stable. He was afebrile. Mr. Grimes was admitted to the hospital with suspicion for infectious colitis. He was treated with Cipro and Flagyl. With this over the intervening 24 hours, he has had good resolution of his symptoms. He is able to tolerate a soft diet. He has had minimal to no nausea, no vomiting. He has had some minimal diarrhea with 1 episode yesterday with blood noted in the stool, but none since and he is eager for discharge to home. Mr. Grimes is medically stable for discharge to home and to be following with his new primary care physician. He will be treated with a 7-day course of Cipro and Flagyl for a suspected infectious colitis. His stool cultures have been negative thus far. He will also be starting Lantus and this had been confirmed to be available for him at the pharmacy per prescription. DISPOSITION: Home. DIET: Consistent carbohydrate. ACTIVITY: As tolerated. FOLLOWUP PLANS: Please follow up with your primary care physician regarding this acute hospitalization and ongoing management of your diabetes. TIME SPENT: Approximately 60 minutes was spent on the discharge of this patient , more than half the time was spent with the patient at the bedside reviewing the events leading up to this hospitalization, performing the physical examination, and reviewing my plan of care. ALIS SERRANO NP [id number]/CPS #: [id number] [facility]
[2019-10-31] MEDS ORDERED: Insulin ISOPH/REG 70/30 (*) 1 UNITS UNIT SUBCUT SCH (17:00)
== END 2019-10-31 14:40 | disposition home or self-care (01) | DRG 392 ==
LOC: ED 18:38 → MED 10-30 01:59
PROVIDERS: ADMIT Student in an Organized Health Care Education/Training Program; ATTEND Internal Medicine
DX: A09 Infectious gastroenteritis and colitis, unspecified (principal); F12.90 Cannabis use, unspecified, uncomplicated; E10.8 Type 1 diabetes mellitus with unspecified complications; R79.89 Other specified abnormal findings of blood chemistry; Z23 Encounter for immunization; Z79.4 Long term (current) use of insulin
CPT/HCPCS: 36415; 74177; 80048; 80053; 81003; 82438; 83036; 83605; 83690; 83735; 84100; 84302; 84999; 85025; 85652; 86141; 87040; 87045; 87046; 87425; 87493; 87899; 90686; 99285; A9270-GY; J0744; J1644; J1885; J2270; J2405; J2543; Q9967

== ENCOUNTER 2019-11-10 06:30 | Emergency (ER) | payer OTHER ==
--- OUTSIDE RECORDS SUMMARY | 2019-11-10 06:36 | XMS REPORT | Summary of Care ---
:1980 Author Organization [facility] Address [address] [address] Care Team Providers Name Role Phone None, [place] Primary Care Provider Unavailable Reason for Visit Reason Comments Follow Up labs 10/27, [facility] 11/01 Encounter Details Date Type Department Care Team Description 11/08/2019 Office Visit [facility] Bryce Bang MD Colitis, acute (Primary Dx); Practice [address] [facility] Type 2 diabetes mellitus without complication, with long-term current use of insulin ([facility]) [address] [place], [place] [id number] [place] [address] [phone] Allergies Active Allergy Reactions Severity Noted Date Comments Bee Sting Swelling 10/21/2019 documented as of this encounter (statuses as of 11/08/2019) Medications Medication Sig Dispensed Refills Start Date End Date Status Insulin Glargine Inject 15 Units 3 Device 0 10/29/2019 Active 100 UNIT/ML beneath the skin Subcutaneous DAILY. Solution Pen-injector Glucose Blood In 1 Strip by In 100 Strip 2 11/08/2019 Active Vitro Vitro route DAILY. StripIndications: Type 2 diabetes mellitus without complication, with long-term current use of insulin ([facility]) Blood Glucose 1 Device by Does 1 Device 0 11/08/2019 Active Monitor Software not apply route Does not apply DIRECTED. DeviceIndications: uncontrolled Type 2 diabetes non-insulin mellitus without dependent complication, with diabetes. Brand: long-term current Insurance use of insulin preferred ([facility]) Lancets Does not by Does not apply 100 Each 2 11/08/2019 Active apply route DAILY. MiscIndications: Insurance Type 2 diabetes Preferred Brand: mellitus without Dx:uncontrolled complication, with non-Insulin long-term current dependent Test use of insulin Blood Glucose 1 ([facility]) time(s) A DAY metFORMIN Take 1 Tab by 180 Tab 3 11/08/2019 Active (GLUCOPHAGE) 500 mouth TWICE DAILY. MG Oral TabIndications: Type 2 diabetes mellitus without complication, with long-term current use of insulin ([facility]) Liraglutide 18 Inject 0.6 mg 2 Pre-filled 2 11/08/2019 Active MG/3ML beneath the skin Pen Syringe 0 Subcutaneous EVERY MORNING for Solution 7 days, THEN 1.2 Pen-injectorIndica mg EVERY MORNING tions: Type 2 for 90 days. diabetes mellitus without complication, with long-term current use of insulin ([facility]) documented as of this encounter (statuses as of 11/08/2019) Active Problems Problem Noted Date Diabetes mellitus type 2, without complication 11/08/2019 documented as of this encounter (statuses as of 11/08/2019) Social History Tobacco Use Types Packs/Day Years [...] Sign Reading Time Taken Comments Blood Pressure 110/80 11/08/2019 8:19 AM EST Pulse 63 11/08/2019 8:19 AM EST Temperature - - Respiratory Rate - - Oxygen Saturation 97% 11/08/2019 8:19 AM EST Inhaled Oxygen Concentration - - Weight 83.5 kg (184 lb) 11/08/2019 8:19 AM EST Height 175.3 cm (5' 9") 11/08/2019 8:19 AM EST Body Mass Index 27.17 11/08/2019 8:19 AM EST documented in this encounter Progress Notes Bryce Bang MD - 11/08/2019 8:40 AM EST PATIENT: Lokesh Grimes : 1980 DATE OF SERVICE: 11/08/2019 CHIEF COMPLAINT: Chief Complaint Patient presents with Follow Up labs 10/27, [facility] [place] Subjective HISTORY OF PRESENT ILLNESS: Lokesh Grimes is a 39-y.o. male. Pt is here for TCM follow up of colitis admission from [facility]. Pt has completed antibiotics and is feeling well. No issues or recurrences of diarrhea or vomiting. Here today for follow up and to discuss diabetes. 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 Was taking Metformin with side effects. Was ultimately placed on insulin. Pt has been without health insurance for the better part of the last 5 years and has not been taking his medication. States that even when he was taking insulin, his glucose ran in the 250s. "nothing we did seemed to make a difference" and with his job, he cannot be consistent about when he takes medication or to check his finger sticks. Pt denies any visual changes. Was recently seen by Podiatry for ingrown toenails and has his monofillament test performed. States he is otherwise healthy and has no complaints now that his GI issues have resolved. TCM Statement. Review of the hospitalization: I am seeing for transition of care following hospitalization. The date of discharge was: 31 Oct 2019 The discharge diagnosis was Colitis, infectious. I reviewed the discharge summary, discharge instructions, and pertinent additional documentation obtained during hospitalization. I reconciled the medications. I also reviewed the Transition of Care documentation done by staff. The tests that were not available at the time of discharge were reviewed. Additional tests which are not yet available include: N/A--Stool cultures were negative. Coordination of care. - I am satisfied that appropriate referrals are in place to deal with the problems identified during hospitalization, and that the patient has adequate community resources and support in place. I confirmed the patient's understanding of the diagnosis and plan of care. Specific education that was provided today: Diabetes management There are no Patient Instructions on file for this visit. 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 Current Outpatient Medications Medication Sig Insulin Glargine 100 UNIT/ML Subcutaneous Solution Pen-injector Inject 15 Units beneath the skin DAILY. No current facility-administered medications for this visit. [...] file Gets together: Not on file Attends uatsdin service: Not on file Active member of [...] file Social History Narrative Not on file REVIEW OF SYSTEMS: Review of Systems Constitutional: Negative for chills, diaphoresis, fever and weight loss. HENT: Negative for congestion, hearing loss, sore throat and tinnitus. Eyes: Negative for blurred vision, double vision and redness. Respiratory: Negative for cough, shortness of breath and wheezing. Cardiovascular: Negative for chest pain, palpitations and leg swelling. Gastrointestinal: Positive for diarrhea, nausea and vomiting. Negative for abdominal pain, constipation, heartburn and melena. Genitourinary: Negative for dysuria, frequency and urgency. Musculoskeletal: Negative for back pain, falls and neck pain. Skin: Negative for itching and rash. Neurological: Negative for dizziness, tremors and headaches. Endo/Heme/Allergies: Negative for polydipsia. Psychiatric/Behavioral: Negative for depression. The patient is not nervous/ anxious. Objective PHYSICAL EXAM: VITALS: BP 110/80 | Pulse 63 | Ht 5' 9" (1.753 m) | Wt 184 lb (83.5 kg) | SpO2 97% | BMI 27.17kg/m Body mass index is 27.17 kg/m. Physical Exam Constitutional: General: He is not in acute distress. Appearance: Normal appearance. He is normal weight. He is not ill-appearing, toxic-appearing or diaphoretic. HENT: Head: Normocephalic. Right Ear: Tympanic membrane, ear canal and external ear normal. There is no impacted cerumen. Left Ear: Tympanic membrane, ear canal and external ear normal. There is no impacted cerumen. Nose: Nose normal. No congestion or rhinorrhea. Mouth/Throat: Mouth: Mucous membranes are moist. Pharynx: Oropharynx is clear. No oropharyngeal exudate or posterior oropharyngeal erythema. Eyes: General: Right eye: No discharge. Left eye: No discharge. Pupils: Pupils are equal, round, and reactive to light. Neck: Musculoskeletal: Normal range of motion and neck supple. No neck rigidity or muscular tenderness. Vascular: No carotid bruit. Cardiovascular: Rate and Rhythm: Normal rate and regular rhythm. Pulses: Normal pulses. Heart sounds: Normal heart sounds. No murmur. No friction rub. No gallop. Pulmonary: Effort: Pulmonary effort is normal. Breath sounds: Normal breath sounds. No wheezing, rhonchi or rales. Abdominal: General: Abdomen is flat. Bowel sounds are normal. Lymphadenopathy: Cervical: No cervical adenopathy. Neurological: Mental Status: He is alert. ASSESSMENT / IMPRESSION: 1. Colitis, acute TCM for colitis--Doing well now off antibiotics with return of normal function and sense of well-being. 2. Type 2 diabetes mellitus without complication, with long-term current use of insulin ([facility]) Pt with long history of poorly controlled diabetes--last placed on Lantus 15 units twice a day. Prior to initiating this regimen again, he had labs performed that showed glucose in 250 range with A1c of 10.8. Creatinine was normal. Cholesterol was slightly elevated but will focus on diabetes at this time. Given that he had no significant complications for the 5 years he was off medication, I believe he is a Type 2 diabetic with poor response to Sulfonylureas and poor tolerance to High Dose Metformin. Will place back on lower dose Metformin and stop the Lantus. Start Victoza and will have the patient check his blood glucose every morning until we reach steady state before considering moving up the doseor adding another agent. This will fit the patient's lifestyle better and improve glucose control. Have discussed GI upset as a possible side effect of the Victoza and informed the patient that it doesimprove with time in most all cases. Pt verbalized understanding. See back in clinic in 30 days. Plan 1. Type 2 diabetes mellitus without complication, with long-term current use of insulin (HCC) - Glucose Blood In Vitro Strip; 1 Strip by In Vitro route DAILY. Dispense: 100 Strip; Refill: 2 - Blood Glucose Monitor Software Does not apply Device; 1 Device by Does not apply route DIRECTED. uncontrolled non-insulin dependent diabetes. Brand: Insurance preferred Dispense: 1 Device; Refill: 0 - Lancets Does not apply Misc; by Does not apply route DAILY. Insurance Preferred Brand: Dx:uncontrolled non-Insulin dependent Test Blood Glucose 1 time(s) A DAY Dispense: 100 Each; Refill: 2 - metFORMIN (GLUCOPHAGE) 500 MG Oral Tab; Take 1 Tab by mouth TWICE DAILY. Dispense: 180 Tab; Refill: 3 - Liraglutide 18 MG/3ML Subcutaneous Solution Pen-injector; Inject 0.6 mg beneath the skin EVERY MORNING for 7 days, THEN 1.2 mg EVERY MORNING for 90 days. Dispense: 2 Pre-filled Pen Syringe; Refill: 2 - GLYCOHEMOGLOBIN A1C; Future - MICROALBUMIN, RANDOM URINE W/ CREATININE; Future - COMPREHENSIVE METABOLIC PANEL; Future - URINALYSIS (LAB) WITH REFLEX CULTURE; Future Author: Bryce Bang MD 11/08/2019 08:26 documented in this encounter Plan of Treatment Name Type Priority Associated Diagnoses Order Schedule GLYCOHEMOGLOBIN A1C Lab Routine Type 2 diabetes Expected: 12/09/2019 mellitus without (Approximate), complication, with Expires: 11/08/2020 long-term current use of insulin (HCC) MICROALBUMIN, RANDOM URINE Lab Routine Type 2 diabetes Expected: 12/09/2019 W/ CREATININE mellitus without (Approximate), complication, with Expires: 05/06/2020 long-term current use of insulin (HCC) COMPREHENSIVE METABOLIC Lab Routine Type 2 diabetes Expected: 12/09/2019 PANEL mellitus without (Approximate), complication, with Expires: 11/08/2020 long-term current use of insulin (HCC) URINALYSIS (LAB) WITH REFLEX Lab Routine Type 2 diabetes Expected: 2019 CULTURE mellitus without (Approximate), complication, with Expires: 05/06/2020 long-term current use of insulin (HCC) Health Maintenance Due Date Last Done Comments Diabetic Eye Exam 1980 URINE MICROALBUMIN 1980 PNEUMOCOCCAL 0-64 YRS (1 of 1 - 1988 PPSV23) DTaP/Tdap/Td Vaccines (1 - Tdap) 1993 FOOT EXAM 2000 INFLUENZA VACCINE (#1) 2019 HEMOGLOBIN A1C 01/26/2020 10/27/2019 DEPRESSION SCREENING 10/21/2020 10/21/2019 HEPATITIS A IMMUNIZATION SERIES Aged Out No longer eligible based on patient's age to complete this topic HPV IMMUNIZATION SERIES Aged Out No longer eligible based on patient's age to complete this topic MENINGOCOCCAL VACCINE IMM Aged Out No longer eligible based on patient's age to complete this topic documented as of this encounter Goals Goal Patient Goal Associated Recent Patient-Stated? Author Type Problems Progress Glycohemoglobin A1c Diabetes 10.8 No [place], < 8.0 (10/27/2019 MD Bryce 8:08 AM EST) Note: This is an individualized treatment (diabetes control, HgbA1C) goal for Lokesh Grimes: Displayed above is your progress towards your HgbA1C goal. Your goal is shown above (on the left); your most recent HgbA1C is shown on the right. Note that lower numbers are better. Keep immunizations current Lifestyle No Bryce Bang MD Note: This is an individualized lifestyle goal for Lokesh Grimes: Please be sure to keep up-to-date on recommended immunizations. For example, this would include a yearly influenza vaccine. Immunization status can be seen by looking at the Health Maintenance sections of your [facility], Plan of Care, and any After Visit Summaries. Take all prescribed medications as directed Self-management No Bryce Bang MD Note: This is an individualized self-management goal for Lokesh Grimes: Please take all prescribed medications as directed. 1. Do not skip doses. If you cannot afford your medications, talk with your doctor. 2. Use a pill reminder system such as a pill box if needed. Your pharmacist can help you with this. 3. Contact your Pharmacy 5 days before your medication runs out. If you cannot take your medications for any reasons, talk with your doctor. 4. Please bring all of your medication bottles and inhalers (or a list of all your medications/inhalers) with you to every visit. Potential barriers to meeting all of your care plan goals will continue to be addressed on an ongoing basis. documented as of this encounter Results Not on filedocumented in this encounter Visit Diagnoses Diagnosis Colitis, acute Other and unspecified noninfectious gastroenteritis and colitis Type 2 diabetes mellitus without complication, with long-term current use of insulin (HCC) documented in this encounter Insurance Payer Benefit Plan / Subscriber ID Effective Dates Phone Address Type Group [employer] xxxxxxxxxx 2019-Present [employer] [phone] [address] ([place]) [place] [id number] documented as of this encounter
[2019-11-10] MEDS ORDERED: Morphine 4 MG/ML VIAL (1 ml) 4 MG/ML VIAL IV ONE (06:57)
[2019-11-10] MEDS ORDERED: Ondansetron INJ* 2 MG/ML VIAL IV ONE (06:57)
[2019-11-10] MEDS ORDERED: NS 0.9% 1000 ML** 1,000 ML IV ONE (06:57)
[2019-11-10 07:17] LABS: ABS Basophils 0.1 10^3/ul (0-0.2); ABS Lymphocytes 1.5 10^3/ul (1.0-4.8); ABS Monocytes 0.4 10^3/ul (0-0.8); ABS Neutrophils 4.6 10^3/ul (1.5-7.7); Eosinophil % 0.5 %; Hematocrit 47 % (42-52); Hemoglobin 16.2 g/dL (14.0-18.0); Lymphocyte % 23.2 %; Mean Corpuscular HGB Conc 35 g/dL (31-36); Mean Corpuscular Hemoglobin 31 pg (27-31); Mean Corpuscular Volume 89 fL (80-94); Mean Platelet Volume 9.1 fL (7.4-10.4); Platelet Count 275 10^3/uL (150-450); Red Blood Count 5.28 10^6 /uL (4.18-5.48); Red Cell Distribution Width 13 % (10-15); White Blood Count 6.7 10^3/uL (3.5-10.8)
[2019-11-10 07:34] LABS: ALT 72 U/L (7-52); AST 19 U/L (13-39); Albumin 4.7 g/dL (3.2-5.2); Albumin/Globulin Ratio 1.7 (1-3); Alkaline Phosphatase 73 U/L (34-104); Anion Gap 11 mmol/L (2-11); BUN/Creatinine Ratio 21.7 (8-20); Blood Urea Nitrogen 18 mg/dL (6-24); C Reactive Protein < 1.00 mg/L (<8.01); CO2 Carbon Dioxide 21 mmol/L (22-32); Calcium 10.3 mg/dL (8.6-10.3); Chloride 102 mmol/L (101-111); EGFR African American 126.1 (>60); EGFR Non-African American 104.3 (>60); Globulin 2.7 g/dL (2-4); Glucose 269 mg/dL (70-100); Magnesium 1.8 mg/dL (1.9-2.7); Potassium 4.6 mmol/L (3.5-5.0); Sodium 134 mmol/L (135-145); Total Protein 7.4 g/dL (6.4-8.9)
[2019-11-10] MEDS ORDERED: HYDROmorphone INJ* 0.5 MG/0.5 ML SYRINGE IV ONE (07:38)
[2019-11-10] MEDS ORDERED: HYDROmorphone INJ1* 1 MG/ML SYRINGE IV ONE (08:00)
[2019-11-10] MEDS ORDERED: Lactated Ringers 1000 ML Bag* 1,000 ML IV SCH (09:00)
[2019-11-10] MEDS ORDERED: Iodixanol* (CONTRAST) 320 MG/ML 100 ML SDV IV ONE (09:48)
--- NOTE | 2019-11-10 10:51 | ED ---
Abdominal Pain/Male - HPI Summary HPI Summary: Patient is a 39-year-old male with a history of diabetes mellitus and a recent diagnosis of colitis 11 days ago who presents to the ED with severe 10/10 abdominal pain, nausea and vomiting which began at 5 AM today, (2 hours ago). Patient is also endorsing sweats and chills. Denies any fevers. He states [place] [facility] [place] [facility] [place] he has felt well and has completed his course of antibiotics. He states this pain awoke him out of sleep and was much more severe than his previous abdominal pain with nausea and vomiting to which he was admitted for. A CT was obtained at the time which showed colitis, most probable infectious. Patient did complete a course of Cipro and Flagyl. He was also prescribed Zofran. He states he felt well yesterday and has been denying any recent illness. Normal bowel movements. Denies any hematemesis, melena, hematochezia. - History of Current Complaint Chief Complaint: EDAbdPain Stated Complaint: NAUSEA/BLOOD IN STOOL PER PT Time Seen by Provider: 11/10/19 07:01 Hx Obtained From: Patient Onset/Duration: Sudden Onset - at 5am Timing: Constant Severity Initially: Severe Severity Currently: Severe Pain Intensity: 7 Pain Scale Used: 0-10 Numeric Location: Other - mid abdominal pain Radiates: No Character: Sharp Aggravating Factor(s): Nothing Alleviating Factor(s): Nothing Associated Signs And Symptoms: Positive: Negative - Risk Factors Testicular Torsion: Negative Cardiac Risk Factors: Negative - Allergies/Home Medications Allergies/Adverse Reactions: Allergies Allergy/AdvReac Type Severity Reaction Status Date / Time lactose Allergy Diarrhea Verified 11/10/19 06:35 PMH/Surg Hx/FS Hx/Imm Hx Previously Healthy: Yes Endocrine/Hematology History: Reports: Hx Diabetes Denies: Hx Anticoagulant Therapy, Hx Thyroid Disease Cardiovascular History: Denies: Hx Hypertension, Hx Myocardial Infarction, Hx Peripheral Vascular Disease History: Denies: Hx Renal Disease Musculoskeletal History: Denies: Hx Arthritis, Hx Osteoporosis Sensory History: Denies: Hx Cataracts, Hx Contacts or Glasses, Hx Glaucoma, Hx Hearing Aid Opthamlomology History: Denies: Hx Cataracts, Hx Contacts or Glasses, Hx Glaucoma Neurological History: Denies: Hx Headaches, Hx Seizures, Hx Transient Ischemic Attacks (TIA) Psychiatric History: Denies: Hx Anxiety, Hx Depression - Immunization History Hx Pertussis Vaccination: No Immunizations Up to Date: Yes Infectious Disease History: No Infectious Disease History: Denies: Traveled Outside the [place] in Last 30 Days - Family History Known Family History: Negative: Hypertension - Social History Occupation: Employed Full-time Lives: With Family Alcohol Use: Rare Hx Substance Use: Yes Substance Use Type: Reports: Marijuana Smoking Status (MU): Never Smoked Tobacco Review of Systems Positive: Chills, Skin Diaphoresis. Negative: Fever Negative: Palpitations, Chest Pain Negative: Shortness Of Breath, Cough Positive: Abdominal Pain, Vomiting, Nausea. Negative: Diarrhea Genitourinary: Negative Positive: no symptoms reported, see HPI Negative: Arthralgia, Myalgia Neurological: Negative All Other Systems Reviewed And Are Negative: Yes Physical Exam Triage Information Reviewed: Yes Vital Signs On Initial Exam: Initial Vitals Temp Pulse Resp BP Pulse Ox 97.8 F 77 18 175/126 98 11/10/19 06:33 11/10/19 06:33 11/10/19 06:33 11/10/19 06:33 11/10/19 06:33 Vital Signs Reviewed: Yes Appearance: Positive: Pain Distress Skin: Positive: Diaphoretic Head/Face: Positive: Normal Head/Face Inspection Eyes: Positive: EOMI, Conjunctiva Clear Neck: Positive: Supple, No Lymphadenopathy Respiratory/Lung Sounds: Positive: Clear to Auscultation, Breath Sounds Present Cardiovascular: Positive: RRR, Pulses are Symmetrical in both Upper and Lower Extremities Abdomen Description: Positive: Other: - unable to assess as pt id in severe distress with pain "all over" Bowel Sounds: Positive: Present Musculoskeletal: Positive: Normal, Strength/ROM Intact Neurological: Positive: Speech Normal Psychiatric: Positive: Affect/Mood Appropriate Procedures - Sedation Patient Received Moderate/Deep Sedation with Procedure: No Diagnostics - Vital Signs Vital Signs Temp Pulse Resp BP Pulse Ox 11/10/19 10:15 65 105/64 97 11/10/19 10:00 66 95 11/10/19 09:45 62 100/65 97 11/10/19 09:15 64 101/64 96 11/10/19 09:00 64 98 11/10/19 08:45 66 104/67 97 11/10/19 08:23 66 110/77 93 11/10/19 08:00 65 87 11/10/19 07:47 20 11/10/19 07:45 87 176/115 97 11/10/19 07:27 79 100 11/10/19 07:14 67 170/104 100 11/10/19 07:01 18 11/10/19 06:33 97.8 F 77 18 175/126 98 - Laboratory Lab Results: Lab Results 11/10/19 11/10/19 11/10/19 Range/Units 07:09 07:09 07:09 WBC 6.7 (3.5-10.8) 10^3/uL RBC 5.28 (4.18-5.48) 10^6 /uL Hgb 16.2 (14.0-18.0) g/dL Hct 47 (42-52) % MCV 89 (80-94) fL MCH 31 (27-31) pg MCHC 35 (31-36) g/dL RDW 13 (10-15) % Plt Count 275 (150-450) 10^3/uL MPV 9.1 (7.4-10.4) fL Neut % (Auto) 69.4 % Lymph % (Auto) 23.2 % Frio % (Auto) 5.8 % Eos % (Auto) 0.5 % Baso % (Auto) 1.1 % Absolute Neuts (auto) 4.6 (1.5-7.7) 10^3/ul Absolute Lymphs (auto) 1.5 (1.0-4.8) 10^3/ul Absolute Monos (auto) 0.4 (0-0.8) 10^3/ul Absolute Eos (auto) 0.0 (0-0.6) 10^3/ul Absolute Basos (auto) 0.1 (0-0.2) 10^3/ul Absolute Nucleated RBC 0.0 10^3/ul Nucleated RBC % 0.0 Sodium 134 L (135-145) mmol/L Potassium 4.6 (3.5-5.0) mmol/L Chloride 102 (101-111) mmol/L Carbon Dioxide 21 L (22-32) mmol/L Anion Gap 11 (2-11) mmol/L BUN 18 (6-24) mg/dL Creatinine 0.83 (0.67-1.17) mg/dL Est GFR ( Amer) 126.1 (>60) Est GFR (Non-Af Amer) 104.3 (>60) BUN/Creatinine Ratio 21.7 H (8-20) Glucose 269 H (70-100) mg/dL Lactic Acid 3.0 H* (0.5-2.0) mmol/L Calcium 10.3 (8.6-10.3) mg/dL Magnesium 1.8 L (1.9-2.7) mg/dL Total Bilirubin 0.60 (0.2-1.0) mg/dL AST 19 (13-39) U/L ALT 72 H (7-52) U/L Alkaline Phosphatase 73 (34-104) U/L C-Reactive Protein < 1.00 (<8.01) mg/L Total Protein 7.4 (6.4-8.9) g/dL Albumin 4.7 (3.2-5.2) g/dL Globulin 2.7 (2-4) g/dL Albumin/Globulin Ratio 1.7 (1-3) Lipase 33 (11.0-82.0) U/L Result Diagrams: 11/10/19 07:09 11/10/19 07:09 Lab Statement: Any lab studies that have been ordered have been reviewed, and results considered in the medical decision making process. Abdominal Pain Male Course/Dx - Course Course Of Treatment: Patient arrives in severe acute distress. Currently rating his pain a 10/10, patient is actively vomiting and dry heaving intermittently and yelling out in pain. Pain is most notably to the mid lower abdomen, states same location as diagnosis of colitis 11 days ago. He is given 4 mg morphine, 4 mg Zofran and 1 L normal saline to no improvement. Continues to complain of 10/10 pain and appears to be in severe distress. Patient is extremely diaphoretic. At this time a CT abdomen/pelvis with oral contrast was ordered. As he continues to be in pain, he was ordered 1 mg Dilaudid with some improvement. On reexamination, he admits to 2/10 pain at this time. Labs obtained which are WNL including a normal white count and a negative CRP. Lactic 3.0. CT abd/pelvis sitters near resolution of previous transverse and descending colon colitis. On reexamination, patient appears and feels well. He is currently denying any pain or nausea. I discussed with the patient at length that he'll need to see a GI specialist due to his persistent symptoms despite adequate treatment. Differentials include colitis, gastroparesis, viral syndrome, partial obstruction. - Diagnoses Differential Diagnosis/HQI/PQRI: Appendicitis, Bowel Obstruction, Other - colitis, gastroparesis Provider Diagnoses: Abdominal pain Discharge ED - Sign-Out/Discharge Documenting (check all that apply): Patient Departure - Discharge Plan Condition: Stable Disposition: HOME Referrals: Raffi Villarreal DO [Doctor of Osteopathy] - Bryce Bang MD [Primary Care Provider] - Additional Instructions: Please follow up with GI As discussed, we are unsure where your abdominal pain, nausea and vomiting is from Please return if you start to develop any worsening symptoms - Billing Disposition and Condition Condition: STABLE Disposition: Home
[2019-11-10] MEDS ORDERED: Magnesium Sulfate 2 GM IV* 2 GM/50 ML BAG IVPB ONE (11:02)
[2019-11-10 12:09] VITALS: BP 106/70
== END 2019-11-10 12:09 | disposition home or self-care (01) ==
LOC: ED 06:30
DX: R10.9 Unspecified abdominal pain (principal); E11.9 Type 2 diabetes mellitus without complications
CPT/HCPCS: 36415; 74177; 80053; 83605; 83690; 83735; 85025; 86140; 96361; 96365; 96375; 99283; J1170; J2270; J2405; J3475; Q9967

== ENCOUNTER 2019-11-16 19:57 | Emergency (ER) | payer OTHER ==
--- OUTSIDE RECORDS SUMMARY | 2019-11-16 20:07 | XMS REPORT | Summary of Care ---
:1980 Author Organization [facility] Address [address] [facility] [place] [address] Care Team Providers Name Role Phone Bryce Bang Primary Care Provider Reason for Referral Outpatient Procedure (Routine) Status Reason Specialty Diagnoses / Referred By Referred To Procedures Contact Contact Authorized GASTROENTEROLOGY / Diagnoses Nausea Paul Alston, Gastroenterology MARIALUISA Jacobo DO [address] [place] [phone] Phone: Fax: Outpatient Procedure (Routine) Status Reason Specialty Diagnoses / Referred By Referred To Procedures Contact Contact Authorized GASTROENTEROLOGY / Diagnoses Blood in stool Paul Alston, Gastroenterology MARIALUISA Jacobo, DO [address] [place] [phone] Phone: Fax: Reason for Visit Reason Comments New Patient pt reports bloating currently and mild discomfort Colitis Encounter Details Date Type Department Care Team Description 11/12/2019 Office Visit Odalis Martel NP Blood in stool (Primary Dx); Gastroenterology [address] Nausea [address] [place] [id number] [place] [phone] Allergies Active Allergy Reactions Severity Noted Date Comments Bee Sting Swelling 10/21/2019 documented as of this encounter (statuses as of 11/12/2019) Medications Medication Sig Dispensed Refills Start End Date Status Date Glucose Blood In 1 Strip by In 100 Strip 2 Active Vitro Vitro route 9 StripIndications: DAILY. Type 2 diabetes mellitus without complication, with long-term current use of insulin ([facility]) Blood Glucose 1 Device by Does 1 Device 0 Active Monitor Software not apply route 9 Does not apply DIRECTED. DeviceIndications uncontrolled : Type 2 diabetes non-insulin mellitus without dependent complication, diabetes. Brand: with long-term Insurance current use of preferred insulin ([facility]) Lancets Does not by Does not apply 100 Each 2 Active apply route DAILY. 9 MiscIndications: Insurance Type 2 diabetes Preferred Brand: mellitus without Dx:uncontrolled complication, non-Insulin with long-term dependent Test current use of Blood Glucose 1 insulin ([facility]) time(s) A DAY metFORMIN Take 1 Tab by 180 Tab 3 Active (GLUCOPHAGE) 500 mouth TWICE 9 MG Oral DAILY. TabIndications: Type 2 diabetes mellitus without complication, with long-term current use of insulin ([facility]) Liraglutide 18 Inject 0.6 mg 2 Pre-filled 2 02/13/20 Active MG/3ML beneath the skin Pen Syringe 9 20 Subcutaneous EVERY MORNING for Solution 7 days, THEN 1.2 Pen-injectorIndic mg EVERY MORNING ations: Type 2 for 90 days. diabetes mellitus without complication, with long-term current use of insulin ([facility]) ondansetron Take 4 mg by 0 Active (ZOFRAN) 4 MG mouth EVERY EIGHT Oral Tab HOURS NEEDED for Nausea/Vomiting. Insulin Glargine Inject 15 Units 3 Device 0 11/12/19 Discontinued 100 UNIT/ML beneath the skin 9 20 Subcutaneous DAILY. Solution Pen-injector documented as of this encounter (statuses as of 11/12/2019) Active Problems Problem Noted Date Diabetes mellitus type 2, without complication 11/08/2019 documented as of this encounter (statuses as of 11/12/2019) Social History Tobacco Use Types Packs/Day Years [...] Sign Reading Time Taken Comments Blood Pressure 96/64 11/12/2019 8:17 AM EST Pulse 64 11/12/2019 8:17 AM EST Temperature - - Respiratory Rate - - Oxygen Saturation - - Inhaled Oxygen Concentration - - Weight 81.8 kg (180 lb 4.8 oz) 11/12/2019 8:17 AM EST Height 175.3 cm (5' 9") 11/12/2019 8:17 AM EST Body Mass Index 26.63 11/12/2019 8:17 AM EST documented in this encounter Patient Instructions Patient InstructionsOdalis lAston NP - 11/12/2019 8:20 AM ESTStart probiotics Schedule colonoscopy Return after diagnostic scope Return to ED with worsening symptoms documented in this encounter Progress Notes Odalis Alston NP - 11/12/2019 8:20 AM EST ATIENT:Lokesh Grimes : 1980 DATE OF SERVICE: 11/12/2019 Chief Complaint Patient presents with New Patient pt reports bloating currently and mild discomfort Colitis SUBJECTIVE: Lokesh Grimes is a very pleasant 39-y.o. male who presents GI clinic to establish care with provider for recent hospitalization at [facility] for nonspecific colitis. Limited medical records from facility available with patient. Patient reports symptoms improved but not resolved. Currently patient experiencing abdominal bloating with occasional nausea. Reports no bowel movement in 2days. Reports decreased appetite. Patient reports recent admission 10/30/2019 with symptoms of diarrhea with abdominal pain, nausea and vomiting. Reports bright red blood in stools. Patient reports CT indicated colitis Cipro and Flagyl given. Patient reports stool studies completed upon admission 10/30/2019 were negative. Symptoms resolved after antibiotic initially, however symptoms returned 2019 which resulted in returning to emergency department. Patient reports symptoms were a lesser degree than at hospital admission. Reports CT was repeated, indicating no colitis. Has Zofran prescribed for nausea as needed. Denies vomiting, abdominal pain, fever, diarrhea, weight loss, and fatigue. Patient adoptedunknown family history. Reports drinking spring water, no others in household sick, denies recent travel, reports recent amoxicillin Requested electronic medical records from [facility]- CT of abdomen, stools, additional labs requested Labs at [facility] 11/10/2019 H&H 16.2 and 47, WBC 6.7, CRP <1, lipase 33 Pt denies: dysphagia, hematemesis, heartburn, melena, vomiting, constipation, fever, chills, weight loss, fatigue, jaundice, itching, sore throat, sinus pain , eye pain, visual disturbances, palpitations, leg swelling, cough, shortness of breath, dysuria, hematuria, easy bruising, easy bleeding, dizziness, confusion. 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 History reviewed. No pertinent surgical history. Social History Socioeconomic History Marital status: Spouse [...] file Gets together: Not on file Attends yazdanism service: Not on file Active member of [...] file Social History Narrative Not on file Bee sting Current Outpatient Medications Medication Sig Blood Glucose Monitor Software Does not apply Device 1 Device by Does not apply route DIRECTED. uncontrolled non-insulin dependent diabetes. Brand : Insurance preferred Glucose Blood In Vitro Strip 1 Strip by In Vitro route DAILY. Lancets Does not apply Misc by Does not apply route DAILY. Insurance Preferred Brand: Dx:uncontrolled non-Insulin dependent Test Blood Glucose 1 time(s) A DAY Liraglutide 18 MG/3ML Subcutaneous Solution Pen-injector Inject 0.6 mg beneath the skin EVERYMORNING for 7 days, THEN 1.2 mg EVERY MORNING for 90 days. metFORMIN (GLUCOPHAGE) 500 MG Oral Tab Take 1 Tab by mouth TWICE DAILY. ondansetron (ZOFRAN) 4 MG Oral Tab Take 4 mg by mouth EVERY EIGHT HOURS NEEDED for Nausea/Vomiting. No current facility-administered medications for this visit. ROS: A comprehensive 10 point ROS was completed and negative except as mentioned in HPI. OBJECTIVE: BP 96/64 | Pulse 64 | Ht 5' 9" (1.753 m) | Wt 180 lb 4.8 oz (81.8 kg) | BMI 26.63 kg/m Physical Examination GENERAL: alert, oriented, no acute distress. SKIN: normal, no rashes or abnormalities noted. Skin acyanotic, warm, dry. EYES: PERRL, no scleral icterus LUNGS: Lung kemp clear bilat, respiratory effort unlabored. HEART: regular rhythm, no murmurs, no gallops, no rubs. ABDOMEN: Soft, non-tender, BS x 4. No guarding/rigity/rebound. No results found for: WBC, HGB, HCT, PLAT Lab Results Component Value Date NA 137 10/27/2019 K 4.5 10/27/2019 CL 105 10/27/2019 CO2 21 (L) 10/27/2019 GLUCOSE 249 (H) 10/27/2019 BUN 14 10/27/2019 CREATININE 0.5 (L) 10/27/2019 CALCIUM 9.5 10/27/2019 TP 7.4 10/27/2019 ALBUMIN 4.5 10/27/2019 AST 23 10/27/2019 ALT 33 10/27/2019 ALK 92 10/27/2019 TBILI 0.3 10/27/2019 EGFR >60 10/27/2019 Impression/Plan ICD-9-CM ICD-10-CM 1. Blood in stool 578.1 K92.1 COLONOSCOPY DIAGNOSTIC 2. Nausea 787.02 R11.0 EGD (NICK / NON NICK) 1. Blood in stool no alarm symptoms. Recent diagnosis of nonspecific colitis from CT at [facility]. Colonoscopy ordered for diagnostic. Labs recently completed at [facility] hemoglobin hematocrit normal. CRP normal. Probiotics recommended. 2. Nausea- EGD ordered.. Continue taking Zofran as needed as needed. Return to clinic after diagnostic scopes Patient Instructions Start probiotics Schedule colonoscopy Return after diagnostic scope Return to ED with worsening symptoms He was encouraged to call if questions or problems arise. He tells me he will be compliant. More than 50% of time spent face:face in coordination of care & counseling Visit Time: 20 min AUTHOR:Odalis Alston NP Section of Gastroenterology 11/12/2019 11:53 documented in this encounter Plan of Treatment Date Type Specialty Care Team Description 11/19/2019 GI Procedure Gastroenterology Davide Miller, DO [address] [place] [address] [phone] 12/02/2019 Office Visit Gastroenterology Odalis Alston NP [address] [place] [address] [phone] 12/17/2019 Office Visit Family Practice Bryce Bang MD [address] [place] [address] [phone] Name Type Priority Associated Diagnoses Order Schedule COLONOSCOPY DIAGNOSTIC Referral Routine Blood in stool Ordered: 11/12/2019 EGD (NICK / NON Referral Routine Nausea Ordered: 11/12/2019 NICK) Health Maintenance Due Date Last Done Comments [...] filedocumented in this encounter Visit Diagnoses Diagnosis Blood in stool Nausea Nausea alone documented in this encounter Insurance Payer Benefit Plan / Subscriber ID Effective Dates Phone Address Type Group [employer]CIAL AETNA xxxxxxxxxx 2019-Present [employer] [address] ([place]) [place] [phone] documented as of this encounter
[2019-11-16] MEDS ORDERED: Haloperidol INJ IV/IM* 5 MG/ML AMP IV SLOW PU ONE (20:13)
[2019-11-16] MEDS ORDERED: Morphine 10 MG/ML VIAL (1 ml) IV ONE (20:13)
--- NOTE | 2019-11-16 20:14 | ED ---
Abdominal Pain/Male - HPI Summary HPI Summary: 39 y/o male presented to [facility] complaining of mid abdominal pain present since 1 hour ago. Pt is also experiencing nausea. In the room he nearly vomited until a nurse intervened by holding an alcohol wipe in front of his nose. He has previously been diagnosed with ulcerative colitis and has been seen at [facility], where he had a GI appointment scheduled for 11/19/19. His symptoms have reportedly gotten worse since 09/29/19. - History of Current Complaint Chief Complaint: EDNauseaVomitDiarrh Stated Complaint: ABD PAIN PER PT Hx Obtained From: Patient, Family/Silhouette Artist Onset/Duration: Lasting Hours - 1, Still Present Timing: Lasting Hours - 1 Severity Currently: Moderate Pain Intensity: 7 Pain Scale Used: 0-10 Numeric Location: Diffuse - midline Aggravating Factor(s): Nothing Alleviating Factor(s): Other: - alcohol wipe Associated Signs And Symptoms: Positive: Nausea - Allergies/Home Medications Allergies/Adverse Reactions: Allergies Allergy/AdvReac Type Severity Reaction Status Date / Time bee venom protein (honey bee) Allergy Unknown Verified 11/16/19 20:02 Reaction Details gluten Allergy Unknown Verified 11/16/19 20:02 Reaction Details lactose Allergy Diarrhea Verified 11/16/19 20:02 Home Medications: Home Medications Liraglutide (NF) [Victoza (NF)] 1.2 mg SUBCUT DAILY 11/16/19 [History Confirmed 11/16/19] metFORMIN* [Glucophage 500 MG TAB *] 500 mg PO BID 11/16/19 [History Confirmed 11/16/19] PMH/Surg Hx/FS Hx/Imm Hx Endocrine/Hematology History: Reports: Hx Diabetes Denies: Hx Anticoagulant Therapy, Hx Thyroid Disease Cardiovascular History: Denies: Hx Hypertension, Hx Myocardial Infarction, Hx Peripheral Vascular Disease History: Denies: Hx Renal Disease Musculoskeletal History: Denies: Hx Arthritis, Hx Osteoporosis Sensory History: Denies: Hx Cataracts, Hx Contacts or Glasses, Hx Glaucoma, Hx Hearing Aid Opthamlomology History: Denies: Hx Cataracts, Hx Contacts or Glasses, Hx Glaucoma Neurological History: Denies: Hx Headaches, Hx Seizures, Hx Transient Ischemic Attacks (TIA) Psychiatric History: Denies: Hx Anxiety, Hx Depression Infectious Disease History: No Infectious Disease History: Denies: Traveled Outside the [place] in Last 30 Days - Family History Known Family History: Negative: Hypertension - Social History Alcohol Use: Rare Hx Substance Use: Yes Substance Use Type: Reports: Marijuana Smoking Status (MU): Never Smoked Tobacco Review of Systems Positive: Other - screaming in distress Positive: Abdominal Pain, Vomiting - nearly, in room, Nausea All Other Systems Reviewed And Are Negative: Yes Physical Exam - Summary Physical Exam Summary: Appearance: Well-appearing, Well-nourished, screaming due to severe pain Skin: Warm, dry, no obvious rash Eyes: sclera anicteric, no conjunctival pallor ENT: mucous membranes moist Neck: deferred Respiratory: Hyperventilation, screaming Cardiovascular: Appears well perfused, pulses are nml Abdomen: Could not properly examine secondary to pt distress Musculoskeletal: Moving all 4 extremities without obvious discomfort Neurological: Awake and alert, mentation is normal, speech is fluent and appropriate Psychiatric: affect is normal, does not appear anxious or depressed Triage Information Reviewed: Yes Vital Signs On Initial Exam: Initial Vitals Temp Pulse Resp BP Pulse Ox 97.7 F 105 18 145/107 100 11/16/19 19:57 11/16/19 19:57 11/16/19 19:57 11/16/19 19:57 11/16/19 19:57 Vital Signs Reviewed: Yes Procedures - Sedation Patient Received Moderate/Deep Sedation with Procedure: No Diagnostics - Vital Signs Vital Signs Temp Pulse Resp BP Pulse Ox 11/16/19 19:57 97.7 F 105 18 145/107 100 - Laboratory Result Diagrams: 11/16/19 20:45 11/16/19 20:45 Lab Statement: Any lab studies that have been ordered have been reviewed, and results considered in the medical decision making process. - CT abd/pel CT Interpretation Completed By: Radiologist Summary of CT Findings: IMPRESSION: 1. Minimal bilateral lower lobe fibro- atelectatic change and question minimal. infiltrates. 2. Negative CTA abdomen/ pelvis. No occlusion, stenosis or embolism is noted in. aortic branch vasculature including the SMA. The bowel segments are within. normal limits without evidence of ileus or wall thickening. This report was reviewed by the ED physician. Abdominal Pain Male Course/Dx - Course Course Of Treatment: This is a 39 y/o man with recurrent severe episodes of generalized abd pain and vomiting. Diagnostics from prior visits reviewed, I make note of the intermittent lactate elevation and apparent bout of colitis early on in the course and wonder if his symptoms are due to a vascular issue, like median arcuate ligament syndrome. CTA is negative, that seems unlikely. At present his symptoms are controlled, he is amenable to discharge and f/u with his GI specialist later this week. - Diagnoses Provider Diagnoses: Abdominal pain Discharge ED - Sign-Out/Discharge Documenting (check all that apply): Patient Departure - dc - Discharge Plan Condition: Improved Disposition: HOME Patient Education Materials: Acute Abdominal Pain (ED) Referrals: Bryce Bang MD [Primary Care Provider] - Additional Instructions: Keep the appt with your GI doctors at [facility], hopefully they can work this through and find out what is wrong. The CT angiogram of your abdomen tonight was normal, so a problem with the vascular supply to the gut has been ruled out. - Billing Disposition and Condition Condition: IMPROVED Disposition: Home - Attestation Statements Document Initiated by Estrella: Yes Documenting Scribe: Sammy Knight Provider For Whom Estrella is Documenting (Include Credential): Jose G Bourne MD Scribe Attestation: Sammy Valderrama and Cisco Knight, scribed for Jose G Bourne MD on at 1845. Scribe Documentation Reviewed: Yes Provider Attestation: The documentation as recorded by the Sammy castillo accurately reflects the service I personally performed and the decisions made by Jose G enriquez MD Status of Scribe Document: Viewed
[2019-11-16] MEDS ORDERED: Iodixanol* (CONTRAST) 320 MG/ML 100 ML SDV IV ONE (20:38)
[2019-11-16 20:50] LABS: ABS Basophils 0.1 10^3/ul (0-0.2); ABS Eosinophils 0.1 10^3/ul (0-0.6); ABS Lymphocytes 1.9 10^3/ul (1.0-4.8); ABS Monocytes 0.7 10^3/ul (0-0.8); ABS Neutrophils 8.2 10^3/ul (1.5-7.7); Eosinophil % 0.7 %; Hematocrit 44 % (42-52); Hemoglobin 14.6 g/dL (14.0-18.0); Lymphocyte % 17.3 %; Mean Corpuscular HGB Conc 34 g/dL (31-36); Mean Corpuscular Hemoglobin 30 pg (27-31); Mean Corpuscular Volume 90 fL (80-94); Mean Platelet Volume 8.7 fL (7.4-10.4); Platelet Count 222 10^3/uL (150-450); Red Blood Count 4.85 10^6 /uL (4.18-5.48); Red Cell Distribution Width 13 % (10-15); White Blood Count 10.9 10^3/uL (3.5-10.8)
[2019-11-16 21:18] LABS: ALT 20 U/L (7-52); AST 12 U/L (13-39); Albumin 4.7 g/dL (3.2-5.2); Albumin/Globulin Ratio 2.1 (1-3); Alkaline Phosphatase 54 U/L (34-104); Anion Gap 15 mmol/L (2-11); BUN/Creatinine Ratio 21.3 (8-20); Blood Urea Nitrogen 17 mg/dL (6-24); C Reactive Protein < 1.00 mg/L (<8.01); CO2 Carbon Dioxide 22 mmol/L (22-32); Calcium 9.6 mg/dL (8.6-10.3); Chloride 100 mmol/L (101-111); EGFR African American 131.6 (>60); EGFR Non-African American 108.8 (>60); Globulin 2.2 g/dL (2-4); Glucose 195 mg/dL (70-100); Sodium 137 mmol/L (135-145); Total Protein 6.9 g/dL (6.4-8.9)
[2019-11-17 00:12] VITALS: BP 106/67
== END 2019-11-17 00:12 | disposition home or self-care (01) ==
LOC: ED 19:57
DX: R10.9 Unspecified abdominal pain (principal); E11.9 Type 2 diabetes mellitus without complications; Z79.4 Long term (current) use of insulin; R11.0 Nausea; Z79.899 Other long term (current) drug therapy
CPT/HCPCS: 36415; 74174; 80053; 83605; 83690; 85025; 86140; 96374; 96375; 99283; J1630; J2270; Q9967